=== PATIENT | female | born 1975 | race Caucasian/White ===

== ENCOUNTER 2022-10-30 15:22 | Outpatient (CLI) | payer OTHER, SELFPAY ==
[2022-10-30 22:00] LABS: Amphetamine Screen Urine Negative (Negative); Barbiturate Screen Urine Negative (Negative); Benzodiazepines Screen Urine Negative (Negative); Cannabinoid Screen Urine Negative (Negative); Cocaine Screen Urine Negative (Negative); Methadone Screen Urine Negative (Negative); Methamphetamines Screen Urine Negative (Negative); Opiate Screen Urine Negative (Negative); Oxycodone Screen Urine Negative (Negative); Phencyclidine Screen Urine Negative (Negative); Tricyclic Antidepressant Urine Negative (Negative)
[2022-10-30 22:10] LABS: Chloride* 103 mmol/L (96-114)
[2022-10-30 22:11] LABS: Albumin* 4.5 g/dL (3.3-5.0); Sodium* 138 mmol/L (135-149)
[2022-10-30 22:14] LABS: Alanine Aminotransferase* 21 U/L (4-35); Alkaline Phosphatase* 62 U/L (40-150); Aspartate Amino Transferase* 22 U/L (12-35); Bilirubin Total* 0.6 mg/dL (0.1-1.5); Carbon Dioxide* 26 mmol/L (20-32); Creatinine* 0.8 mg/dL (0.5-1.5); Estimated Glomerular Filt Rate 93 ml/min
[2022-10-30 22:15] LABS: Blood Urea Nitrogen* 14 mg/dL (5-24); Calcium* 9.4 mg/dL (8.4-10.6); Glucose* 93 mg/dL (60-115)
[2022-10-30 22:17] LABS: C Reactive Protein* 0.6 mg/dL (0.5-1.0)
[2022-10-30 22:21] LABS: Vitamin D 25 Hydroxy* 27 ng/mL (30-80)
[2022-10-30 23:08] LABS: Potassium* 4.3 mmol/L (3.6-5.1)
== END 2022-10-30 15:23 | disposition home or self-care (01) ==
PROVIDERS: PCP Family Medicine; Visit Provider Family Medicine
DX: Z00.00 Encounter for general adult medical examination without abnormal findings (principal); M54.9 Dorsalgia, unspecified; R53.83 Other fatigue; I10 Essential (primary) hypertension; N89.8 Other specified noninflammatory disorders of vagina; Z78.9 Other specified health status
CPT/HCPCS: 80053; 80306; 82306; 84443; 86140; 87086

== ENCOUNTER 2022-11-03 10:23 | Outpatient (CLI) | payer OTHER, SELFPAY ==
[2022-11-03 13:57] LABS: Carboxyhemoglobin* 1.1 % (0.0-5.0)
[2022-11-03 15:25] LABS: Ferritin* 21.7 ng/mL (6.24-137.0)
[2022-11-04 14:32] LABS: Transferrin 315 mg/dL (200-360)
[2022-11-06 03:03] LABS: Iron* 81 ug/dL (37-170)
[2022-11-06 03:13] LABS: Percent Iron Saturation 20 % (20-50); Total Iron Binding Capacity 415 ug/dL (265-497)
[2022-11-07 19:44] LABS: C282Y Hemochromatosis Mutation Negative; H63D Hemochromatosis Mutation Heterozygous; HFE PCR Specimen Whole Blood; S65C Hemochromatosis Mutation Negative
== END 2022-11-03 10:24 | disposition home or self-care (01) ==
PROVIDERS: PCP Family Medicine; Visit Provider Family Medicine
DX: D58.2 Other hemoglobinopathies (principal); R51.9 Headache, unspecified; I10 Essential (primary) hypertension; R53.83 Other fatigue; N13.2 Hydronephrosis with renal and ureteral calculous obstruction
CPT/HCPCS: 81256; 82375; 82728; 83540; 83550; 84466

== ENCOUNTER 2023-01-16 14:18 | Outpatient (CLI) | payer BC, SELFPAY ==
--- NOTE | 2023-01-16 14:40 | CRLHL7_ITS ---
For Patients: As a result of the Cures Act, medical imaging exams and procedure reports are released immediately into your electronic medical record. You may view this report before your referring provider. If you have questions, please contact your health care provider. BILATERAL SCREENING MAMMOGRAM WITH COMPUTER-AIDED DETECTION TECHNIQUE: CC and MLO views were obtained. These mammographic images have been obtained using full-field digital technique. These mammographic images were interpreted with the benefit of computer-aided detection. COMPARISON FILM: 02/03/19. FINDINGS: The breasts are heterogeneously dense, which may obscure small masses IMPRESSION: There is no radiographic evidence for malignancy. ASSESSMENT: BI-RADS Category 1: Negative RECOMMENDATION: Routine screening mammogram in 1 year. A lay language report of this examination will be provided to the patient. Robel Cervantes M.D. Diagnostic Radiologist [email or web address] / be/Dictated by: Robel Cervantes MD @ 01/19/2023 9:09:00 AM be/Dictated by: Robel Cervantes MD @ 01/19/2023 9:09:00 AM (Electronically Signed)
== END 2023-01-16 14:19 | disposition home or self-care (01) ==
LOC: MAMMO 14:21
PROVIDERS: PCP Family Medicine; Visit Provider Family Medicine
DX: Z12.31 Encounter for screening mammogram for malignant neoplasm of breast (principal); R92.2 Inconclusive mammogram
CPT/HCPCS: 77067